=== PATIENT | female | born 1950 | race Caucasian/White ===

== ENCOUNTER 2017-09-05 16:38 | Emergency (ER) | payer OTHER ==
[~2017-09-05] VITALS: Ht 154.9 cm; Wt 53.9 kg
[2017-09-05 17:02] LABS: HEMATOCRIT 40.1 % (36.0-46.0); MCH 31.3 PG (29.0-34.0); MCHC 33.9 G/DL (30.0-36.0); MCV 92.2 FL (83-99); MEAN PLAT.VOLUME 9.7 uM^3 (9.5-12.4); PLATELET COUNT 279 K/uL (156-360); RBC DIS.WIDTH-CV 11.5 % (11.8-14.6); RBC DIS.WIDTH-SD 39.2 % (39-53); RED BLOOD COUNT 4.35 M/uL (3.80-5.20); WHITE BLOOD COUNT 5.2 K/uL (4.1-10.2)
[2017-09-05 17:11] LABS: CHLORIDE 105 mEq/L (99-109); POTASSIUM 3.6 mEq/L (3.7-5.4); SODIUM 141 mEq/L (136-147)
[2017-09-05 17:13] LABS: GLUCOSE 104 mg/dL (70-99)
[2017-09-05 17:14] LABS: ANION GAP 12 MEQ/L (2-14)
[2017-09-05 17:17] LABS: UREA NITROGEN (BUN) 15 mg/dL (9-23)
[2017-09-05 17:19] LABS: GFR ESTIMATE (CALCULATED) > 59 mL/min/
[2017-09-05 17:22] LABS: TROP-I INTERPRETATION NEGATIVE; TROPONIN-I < 0.01 ng/mL (0.0-0.30)
[2017-09-05 19:20] LABS: TROP-I INTERPRETATION NEGATIVE; TROPONIN-I < 0.01 ng/mL (0.0-0.30)
[2017-09-05] MEDS ORDERED: ATARAX,VISTARIL25 MG PO (20:16)
[2017-09-05] MEDS ORDERED: ZANTAC150 MG PO (20:16)
[2017-09-05 20:42] VITALS: BP 175/85
== END 2017-09-05 20:42 | disposition home or self-care (01) ==
LOC: EME 16:38
PROVIDERS: Nurse Practitioner Family
DX: R07.9 Chest pain, unspecified (principal); F41.9 Anxiety disorder, unspecified; K21.9 Gastro-esophageal reflux disease without esophagitis; I10 Essential (primary) hypertension
CPT/HCPCS: 71020; 80048; 84484; 85027; 93005; 93880; 99281; 99283; Q0177